=== PATIENT | female | born 1960 | race Caucasian/White ===

== ENCOUNTER 2022-05-26 09:30 | Emergency (ER) | payer BC ==
[2022-05-26] MEDS ORDERED: Acetaminophen 325 MG Tab PO ONE (10:45)
[2022-05-26] MEDS ORDERED: Ketorolac 15 MG/ML SDV IM ONE (10:45)
[2022-05-26] MEDS ORDERED: Ketorolac 30 MG/ML SDV IM ONE (11:06)
== END 2022-05-26 12:15 | disposition home or self-care (01) ==
LOC: JD.ED 09:30
DX: R51.9 Headache, unspecified (principal); R03.0 Elevated blood-pressure reading, without diagnosis of hypertension; E78.00 Pure hypercholesterolemia, unspecified; E03.9 Hypothyroidism, unspecified; F17.210 Nicotine dependence, cigarettes, uncomplicated; Z79.899 Other long term (current) drug therapy; Z79.82 Long term (current) use of aspirin
CPT/HCPCS: 36415; 70450; 71045; 80053; 84484; 85025; 96372; 99284; A9270; J1885